=== PATIENT | male | born 1970 | race Caucasian/White ===

== ENCOUNTER 2024-05-28 16:35 | Outpatient (RCR) | payer BC, SELFPAY | END 2024-08-06 11:48 | disposition home or self-care (01) | LOC: PT 16:35 | PROVIDERS: PCP Internal Medicine; Visit Provider Internal Medicine | DX: M47.812 Spondylosis without myelopathy or radiculopathy, cervical region (principal); M54.2 Cervicalgia; R53.83 Other fatigue; M79.601 Pain in right arm | CPT/HCPCS: 97110; 97112; 97140; 97162 ==